=== PATIENT | male | born 1970 | race Caucasian/White ===

== ENCOUNTER 2019-02-02 20:38 | Emergency (ER) | payer OTHER ==
[~2019-02-02] VITALS: Ht 182.9 cm; Wt 106.6 kg
[2019-02-02] MEDS ORDERED: ZESTRIL5 MG (20:45)
[2019-02-03] MEDS ORDERED: BENADRYL25 MG PO (00:54)
[2019-02-03] MEDS ORDERED: MEDROL8 MG PO (00:54)
== END 2019-02-03 01:13 | disposition home or self-care (01) ==
LOC: ER 20:38
DX: L53.8 Other specified erythematous conditions (principal); R06.02 Shortness of breath; T78.49XA Other allergy, initial encounter; Y92.89 Other specified places as the place of occurrence of the external cause